=== PATIENT | male | born 1960 | race Two or more races ===

== ENCOUNTER → 2016-07-29 | Outpatient (CLI) | payer BC ==
--- NOTE | 2016-07-29 11:07 | DI ---
PA /LATERAL CHEST X-RAY, 07/29/2016 10:01 AM : Clinical History: Cough. Previous Exam: None at this facility. There is no acute soft tissue or bony abnormality. Heart size is normal. Lungs are clear. Mediastinal structures are normal. There are no pulmonary nodules. Reading: Normal chest x-ray.
== END ==
LOC: RAD 10:10
DX: R05 Cough (principal); F17.220 Nicotine dependence, chewing tobacco, uncomplicated
CPT/HCPCS: 71020

== ENCOUNTER 2016-10-04 10:28 | Day surgery (SDC) | payer BC ==
[~2016-10-04 10:28] MED LIST: LIDOCAINE W/ SODIUM BICARB 0.5 ML SYR ONE; Lactated Ringers 1,000 ML PRIMARY IV ONE
[2016-10-04 10:56] VITALS: RESP 18
[2016-10-04] MEDS ORDERED: fentaNYL Inj 100 MCG/2 ML VIAL ONE (11:23)
[2016-10-04] MEDS ORDERED: NEOMYCIN/BACITRACIN/POLYMYXIN 0.9 GM OINT PACKET TOPICAL ONE (11:42)
[2016-10-04] MEDS ORDERED: LIDOCAINE HCL 1%/EPI 1:100,000 - 20 ML VIAL ONE (11:43)
[2016-10-04] MEDS ORDERED: Lactated Ringers 1,000 ML PRIMARY IV ONE (12:41)
--- NOTE | 2016-10-04 13:14 | GEN.OPNOTE ---
Colonoscopy Procedure Note Surgery Date: 10/04/16 Preoperative Diagnosis: Need for screening colonoscopy. Patient has multiple skin lesions 2 on the head one of the back one of the right axilla one of the right flank and one of the left hip need to be biopsied Postoperative Diagnosis: Same Procedure: Colonoscopy. Excisional biopsy 6 Surgeon: Marcial Pompa MD Anesthesia Provider: Elian Lindsey CRNA Anesthesia Type: MAC Indications: Patient is over 50 years of age never had a screening colonoscopy. He also has multiple skin lesions that need to be biopsied. Findings: Prep : Excellent Cecum : Scope was advanced all the way to cecum. Ileocecal valve clearly identified along with pencil orifice. Patient normal-appearing cecum Ascending : Ascending colon was within normal limits Transverse : Transverse colon had no abnormal pathology Sigmoid : Descending and sigmoid colon within normal limits Rectum : Rectum free from disease Digital Rectal Exam : No rectal masses palpated A lubricated flexible colonoscope was inserted and passed to the blind end of the cecum. Additional Details: Before doing a colonoscopy patient had a timeout performed. I initially prepped draped each lesion sterilely and then infiltrated local anesthetic. The patient had each lesion excised. Hemostased electrocautery. Wounds were closed with 4-0 Vicryl case running suture. The 2 lesions on his scalp were closed with 4-0 Prolene contents running stitches. Total of 6 biopsies were performed
[2016-10-04 14:26] VITALS: TEMP 97.4
== END 2016-10-04 13:47 | disposition home or self-care (01) ==
LOC: SDSC 10:28
PROVIDERS: ATTEND Surgery
DX: Z12.11 Encounter for screening for malignant neoplasm of colon (principal); L72.9 Follicular cyst of the skin and subcutaneous tissue, unspecified
CPT/HCPCS: 11402; 11403; 11404; 11422; 45378; J2704; J3010; J7120